=== PATIENT | male | born 1955 | race Caucasian/White ===

== ENCOUNTER 2017-01-03 13:43 | Emergency (ER) | payer BC ==
[~2017-01-03] VITALS: Ht 180.3 cm; Wt 77.1 kg
[2017-01-03] MEDS ORDERED: RISP0.5T16 PO (14:04)
[2017-01-03] MEDS ORDERED: CELE20TA PO (14:04)
[2017-01-03] MEDS ORDERED: LIDOCAINE W/EPINEPHRINE 1% 20ML VIAL SC ONE (15:00)
[2017-01-03] MEDS ORDERED: ceFAZolin SOD 1 GM in D5W MINI-BAG PLUS 50 ML IV ONE (15:00)
[2017-01-03 15:13] LABS: MEAN CORPUSCULAR HEMOGLOBIN 33.4 pg (27.0-33.0); MEAN CORPUSCULAR VOLUME 98.4 fl (80.0-96.0); WHITE BLOOD COUNT 16.5 K/mm3 (4.0-10.0)
[2017-01-03 15:42] LABS: ALBUMIN 3.7 GM/DL (3.2-5.2); ALBUMIN/GLOBULIN RATIO 1.37 (1.00-1.93); ALKALINE PHOSPHATASE 76 U/L (45-117); ALT/SGPT 18 U/L (12-78); ANION GAP 11 MEQ/L (8-16); AST/SGOT 10 U/L (15-37); BILIRUBIN,DIRECT 0.2 MG/DL (0.0-0.2); BLOOD UREA NITROGEN 24 MG/DL (7-18); CALCIUM LEVEL 8.3 MG/DL (8.5-10.1); CARBON DIOXIDE LEVEL 25 MEQ/L (21-32); CHLORIDE LEVEL 104 MEQ/L (98-107); CREATININE FOR GFR 1.11 MG/DL (0.70-1.30); GLOMERULAR FILTRATION RATE > 60.0 (>56); GLUCOSE, FASTING 178 MG/DL (70-105); POTASSIUM SERUM 4.4 MEQ/L (3.5-5.1); SODIUM LEVEL 140 MEQ/L (136-145); TOTAL PROTEIN 6.4 GM/DL (6.4-8.2)
[2017-01-03] MEDS ORDERED: NS 1,000 ML IV ONE ×2 (16:30→17:00)
[2017-01-03 18:25] LABS: METHADONE URINE NEGATIVE (NEGATIVE)
[2017-01-03] MEDS ORDERED: risperiDONE 0.5 MG TAB PO ONE (20:45)
[2017-01-04 01:09] VITALS: BP 114/66
--- NOTE | 2017-01-04 06:48 | ECGEPIP ---
Stationary ECG Study [facility] - ED Test Date: 2017-01-03 Pat Name: SONJA JASMINE Department: Room: - Gender: M [employer] Psych[employer] Nurse: : [id number] Requested By: DALLIN Meléndez Order Number: [id number] Reading MD: Karly Vines Measurements Intervals [place] Rate: 84 P: 79 CO: 146 QRS: 36 QRSD: 100 T: 50 QT: 352 QTc: 416 Interpretive Statements SINUS RHYTHM WITH MARKED SINUS ARRHYTHMIA INDETERMINATE AXIS LOW QRS VOLTAGE LIMB LEAD NONSPECIFIC ST T WAVE CHANGES NO PRIOR Electronically Signed On 01-04-2017 6:47:43 EDT by Karly Vines
== END 2017-01-04 01:13 ==
LOC: EDBD 13:43 → M ED 17:26
DX: T14.91 Suicide attempt (principal); F33.9 Major depressive disorder, recurrent, unspecified; S61.512A Laceration without foreign body of left wrist, initial encounter; S61.511A Laceration without foreign body of right wrist, initial encounter; X78.9XXA Intentional self-harm by unspecified sharp object, initial encounter; Y92.89 Other specified places as the place of occurrence of the external cause; Y93.89 Activity, other specified; Y99.8 Other external cause status; F41.9 Anxiety disorder, unspecified; I49.9 Cardiac arrhythmia, unspecified; R94.31 Abnormal electrocardiogram [ECG] [EKG]; Z79.899 Other long term (current) drug therapy
CPT/HCPCS: 12002; 80048; 80076; 80306; 81001; 84443; 85027; 87086; 93005; 96361; 96365; 99285; G0480; J0690

== ENCOUNTER 2018-05-18 10:58 | Inpatient (IN) | payer BC ==
[~2018-05-18 10:58] MED LIST: ASPIRIN 81 MG CHEW TABLET PO
[2018-05-18 11:40] LABS: BEDSIDE GLUCOSE 127 MG/DL (80-115)
[2018-05-18 11:44] LABS: BASO % 0.1 % (0.0-1.0); HEMATOCRIT 41.9 % (42.0-52.0); HEMOGLOBIN 14.8 g/dl (13.5-17.5); IMMATURE GRANULOCYTE % 0.5 % (0-3.0); LYMPH # 0.7 10^3/uL (1.5-4.5); LYMPH % 4.9 % (24.0-44.0); MEAN CORPUSCULAR HEMOGLOBIN 32.7 pg (27.0-33.0); MEAN CORPUSCULAR HGB CONC 35.3 g/dl (32.0-36.5); MEAN CORPUSCULAR VOLUME 92.5 fl (80.0-96.0); MONO # 1.2 10^3/uL (0.0-0.8); MONO % 8.2 % (0.0-5.0); NEUTROPHILS # 12.7 10^3/uL (1.8-7.7); NEUTROPHILS % 86.3 % (36.0-66.0); PLATELET COUNT, AUTOMATED 235 10^3/uL (150-450); RED BLOOD COUNT 4.53 10^6/uL (4.30-6.10); RED CELL DISTRIBUTION WIDTH 11.9 % (11.5-14.5); WHITE BLOOD COUNT 14.7 10^3/uL (4.0-10.0)
[2018-05-18 12:00] LABS: INR 0.99; PROTHROMBIN TIME 13.2 SECONDS (12.1-14.4)
[2018-05-18 12:01] LABS: PARTIAL THROMBOPLASTIN TIME 26.7 SECONDS (25.4-37.6)
[2018-05-18 12:28] LABS: ANION GAP 8 MEQ/L (8-16); BLOOD UREA NITROGEN 21 MG/DL (7-18); CALCIUM LEVEL 8.7 MG/DL (8.8-10.2); CARBON DIOXIDE LEVEL 30 MEQ/L (21-32); CHLORIDE LEVEL 101 MEQ/L (98-107); CPK CREATINE PHOSPHOKINASE 312 U/L (39-308); GLOMERULAR FILTRATION RATE > 60.0 (>49); GLUCOSE, FASTING 115 MG/DL (70-100); MB/CK RELATIVE INDEX 1.44 (< OR =4); POTASSIUM SERUM 3.9 MEQ/L (3.5-5.1); SODIUM LEVEL 139 MEQ/L (136-145); TROPONIN I 0.32 NG/ML (< 0.10)
[2018-05-18] MEDS ORDERED: NS 1,000 ML IV (12:45)
[2018-05-18] MEDS: NS 1,000 ML IV ×4 (12:55→20:20)
[2018-05-18] MEDS ORDERED: ONDANSETRON 4MG/2ML VIAL (J2405) IV (13:45)
[2018-05-18] MEDS: ASPIRIN 325 MG TAB PO (13:50)
[2018-05-18] MEDS: ACETAMINOPHEN TAB 650MG DOSE (2X325MG) PO (15:13)
[2018-05-18 15:44] LABS: ESTIMATED AVERAGE GLUCOSE 108 MG/DL (60-110); HEMOGLOBIN A1c 5.4 %
[2018-05-18 16:04] LABS: C REACTIVE PROTEIN QUANTITATIV 1.69 MG/DL (0.00-0.30); CHOLESTEROL LEVEL 166 MG/DL (<200); CHOLESTEROL RISK RATIO 3.192 (<5); HDL CHOLESTEROL 52 MG/DL (>40); LDL CHOLESTEROL 99 MG/DL (<100); NON-HDL-C 114 MG/DL; TRIGLYCERIDES LEVEL 73 MG/DL (<150)
[2018-05-18] MEDS: ASPIRIN 81 MG ENTERIC TAB PO (17:03)
[2018-05-18 18:17] LABS: ANION GAP 7 MEQ/L (8-16); BLOOD UREA NITROGEN 21 MG/DL (7-18); CALCIUM LEVEL 8.4 MG/DL (8.8-10.2); CARBON DIOXIDE LEVEL 26 MEQ/L (21-32); CHLORIDE LEVEL 109 MEQ/L (98-107); CREATININE FOR GFR 0.65 MG/DL (0.70-1.30); GLOMERULAR FILTRATION RATE > 60.0 (>49); GLUCOSE, FASTING 102 MG/DL (70-100); POTASSIUM SERUM 3.9 MEQ/L (3.5-5.1); SODIUM LEVEL 142 MEQ/L (136-145)
[2018-05-18 18:20] LABS: CPK CREATINE PHOSPHOKINASE 371 U/L (39-308); MB/CK RELATIVE INDEX 1.37 (< OR =4); TROPONIN I 0.36 NG/ML (< 0.10)
[2018-05-18] MEDS: ATORVASTATIN 20 MG TAB PO (18:35)
[2018-05-18] MEDS: CitaloPRAM (CeleXA) 20 MG TAB PO (18:35)
[2018-05-18] MEDS: HEPARIN SOD (PORCINE) 5000 UNITS/ML VIAL SC (20:19)
[2018-05-18 20:46] LABS: ERYTHROCYTE SEDIMENTATION RATE 6 mm/hr (0-20)
[2018-05-18] MEDS ORDERED: ATORVASTATIN 20 MG TAB PO (21:00)
[2018-05-19 02:35] LABS: CPK CREATINE PHOSPHOKINASE 382 U/L (39-308); MB/CK RELATIVE INDEX 0.99 (< OR =4); TROPONIN I 0.34 NG/ML (< 0.10)
[2018-05-19] MEDS: NS 1,000 ML IV ×2 (06:16→14:36)
[2018-05-19 06:55] LABS: BASO % 0.1 % (0.0-1.0); HEMATOCRIT 36.2 % (42.0-52.0); IMMATURE GRANULOCYTE % 0.5 % (0-3.0); LYMPH # 0.8 10^3/uL (1.5-4.5); LYMPH % 7.1 % (24.0-44.0); MEAN CORPUSCULAR HEMOGLOBIN 33.1 pg (27.0-33.0); MEAN CORPUSCULAR HGB CONC 35.4 g/dl (32.0-36.5); MEAN CORPUSCULAR VOLUME 93.5 fl (80.0-96.0); MONO # 1.1 10^3/uL (0.0-0.8); MONO % 9.1 % (0.0-5.0); NEUTROPHILS # 9.8 10^3/uL (1.8-7.7); NEUTROPHILS % 83.2 % (36.0-66.0); PLATELET COUNT, AUTOMATED 203 10^3/uL (150-450); RED BLOOD COUNT 3.87 10^6/uL (4.30-6.10); RED CELL DISTRIBUTION WIDTH 12.2 % (11.5-14.5); WHITE BLOOD COUNT 11.7 10^3/uL (4.0-10.0)
[2018-05-19 07:04] LABS: HEMOGLOBIN 12.8 g/dl (13.5-17.5)
[2018-05-19 07:20] LABS: ALBUMIN 3.2 GM/DL (3.2-5.2); ALBUMIN/GLOBULIN RATIO 1.03 (1.00-1.93); ALKALINE PHOSPHATASE 67 U/L (45-117); ALT/SGPT 19 U/L (12-78); ANION GAP 7 MEQ/L (8-16); AST/SGOT 21 U/L (7-37); BILIRUBIN,TOTAL 0.9 MG/DL (0.2-1.0); BLOOD UREA NITROGEN 15 MG/DL (7-18); CALCIUM LEVEL 7.8 MG/DL (8.8-10.2); CARBON DIOXIDE LEVEL 26 MEQ/L (21-32); CHLORIDE LEVEL 106 MEQ/L (98-107); CHOLESTEROL LEVEL 143 MG/DL (<200); CREATININE FOR GFR 0.78 MG/DL (0.70-1.30); GLOMERULAR FILTRATION RATE > 60.0 (>49); GLUCOSE, FASTING 108 MG/DL (70-100); HDL CHOLESTEROL 50 MG/DL (>40); LDL CHOLESTEROL 75 MG/DL (<100); NON-HDL-C 93 MG/DL; POTASSIUM SERUM 3.6 MEQ/L (3.5-5.1); SODIUM LEVEL 139 MEQ/L (136-145); TOTAL PROTEIN 6.3 GM/DL (6.4-8.2); TRIGLYCERIDES LEVEL 88 MG/DL (<150)
[2018-05-19] MEDS: CitaloPRAM (CeleXA) 20 MG TAB PO (09:27)
[2018-05-19] MEDS: ATORVASTATIN 20 MG TAB PO (09:27)
[2018-05-19] MEDS: HEPARIN SOD (PORCINE) 5000 UNITS/ML VIAL SC ×2 (09:27→21:07)
[2018-05-19] MEDS: INFLUENZA QUADRIVALENT PF VACCINE 0.5ML SYRINGE (90686) IM (09:28)
[2018-05-19] MEDS: ASPIRIN 81 MG ENTERIC TAB PO (09:28)
[2018-05-19 10:32] LABS: CPK CREATINE PHOSPHOKINASE 314 U/L (39-308); MB/CK RELATIVE INDEX 0.92 (< OR =4); TROPONIN I 0.28 NG/ML (< 0.10)
[2018-05-20] MEDS: NS 1,000 ML IV ×4 (04:18→21:32)
[2018-05-20 05:08] LABS: BASO % 0.3 % (0.0-1.0); EOS % 0.1 % (0.0-3.0); HEMATOCRIT 33.9 % (42.0-52.0); HEMOGLOBIN 11.8 g/dl (13.5-17.5); IMMATURE GRANULOCYTE % 0.4 % (0-3.0); LYMPH # 1.1 10^3/uL (1.5-4.5); LYMPH % 11.9 % (24.0-44.0); MEAN CORPUSCULAR HEMOGLOBIN 32.8 pg (27.0-33.0); MEAN CORPUSCULAR HGB CONC 34.8 g/dl (32.0-36.5); MEAN CORPUSCULAR VOLUME 94.2 fl (80.0-96.0); MONO # 1.1 10^3/uL (0.0-0.8); MONO % 12.2 % (0.0-5.0); NEUTROPHILS # 6.9 10^3/uL (1.8-7.7); NEUTROPHILS % 75.1 % (36.0-66.0); PLATELET COUNT, AUTOMATED 172 10^3/uL (150-450); WHITE BLOOD COUNT 9.2 10^3/uL (4.0-10.0)
[2018-05-20 05:41] LABS: ALBUMIN 3.1 GM/DL (3.2-5.2); ALBUMIN/GLOBULIN RATIO 1.11 (1.00-1.93); ALKALINE PHOSPHATASE 62 U/L (45-117); ALT/SGPT 18 U/L (12-78); ANION GAP 7 MEQ/L (8-16); AST/SGOT 17 U/L (7-37); BILIRUBIN,TOTAL 0.7 MG/DL (0.2-1.0); BLOOD UREA NITROGEN 15 MG/DL (7-18); CALCIUM LEVEL 8.3 MG/DL (8.8-10.2); CARBON DIOXIDE LEVEL 28 MEQ/L (21-32); CHLORIDE LEVEL 106 MEQ/L (98-107); CREATININE FOR GFR 0.63 MG/DL (0.70-1.30); GLOMERULAR FILTRATION RATE > 60.0 (>49); GLUCOSE, FASTING 104 MG/DL (70-100); POTASSIUM SERUM 3.6 MEQ/L (3.5-5.1); SODIUM LEVEL 141 MEQ/L (136-145); TOTAL PROTEIN 5.9 GM/DL (6.4-8.2)
[2018-05-20] MEDS: HEPARIN SOD (PORCINE) 5000 UNITS/ML VIAL SC ×2 (10:02→20:47)
[2018-05-20] MEDS: ATORVASTATIN 20 MG TAB PO (10:02)
[2018-05-20] MEDS: ASPIRIN 81 MG ENTERIC TAB PO (10:02)
[2018-05-20] MEDS: CitaloPRAM (CeleXA) 20 MG TAB PO (10:02)
[2018-05-21 05:27] LABS: BASO % 0.4 % (0.0-1.0); EOS % 0.5 % (0.0-3.0); HEMATOCRIT 34.3 % (42.0-52.0); HEMOGLOBIN 11.9 g/dl (13.5-17.5); IMMATURE GRANULOCYTE % 0.4 % (0-3.0); LYMPH # 1.3 10^3/uL (1.5-4.5); LYMPH % 15.8 % (24.0-44.0); MEAN CORPUSCULAR HEMOGLOBIN 32.7 pg (27.0-33.0); MEAN CORPUSCULAR HGB CONC 34.7 g/dl (32.0-36.5); MEAN CORPUSCULAR VOLUME 94.2 fl (80.0-96.0); MONO % 11.9 % (0.0-5.0); NEUTROPHILS # 5.8 10^3/uL (1.8-7.7); PLATELET COUNT, AUTOMATED 180 10^3/uL (150-450); RED BLOOD COUNT 3.64 10^6/uL (4.30-6.10); WHITE BLOOD COUNT 8.2 10^3/uL (4.0-10.0)
[2018-05-21 05:55] LABS: ALKALINE PHOSPHATASE 68 U/L (45-117); ALT/SGPT 24 U/L (12-78); ANION GAP 6 MEQ/L (8-16); AST/SGOT 21 U/L (7-37); BILIRUBIN,TOTAL 0.7 MG/DL (0.2-1.0); BLOOD UREA NITROGEN 14 MG/DL (7-18); CALCIUM LEVEL 8.3 MG/DL (8.8-10.2); CARBON DIOXIDE LEVEL 28 MEQ/L (21-32); CHLORIDE LEVEL 107 MEQ/L (98-107); CREATININE FOR GFR 0.65 MG/DL (0.70-1.30); GLOMERULAR FILTRATION RATE > 60.0 (>49); GLUCOSE, FASTING 95 MG/DL (70-100); POTASSIUM SERUM 3.7 MEQ/L (3.5-5.1); SODIUM LEVEL 141 MEQ/L (136-145)
[2018-05-21] MEDS: NS 1,000 ML IV (06:22)
[2018-05-21] MEDS: ASPIRIN 81 MG ENTERIC TAB PO (09:14)
[2018-05-21] MEDS: ATORVASTATIN 20 MG TAB PO (09:14)
[2018-05-21] MEDS: CitaloPRAM (CeleXA) 20 MG TAB PO (09:14)
[2018-05-21] MEDS: HEPARIN SOD (PORCINE) 5000 UNITS/ML VIAL SC ×2 (10:06→20:07)
[2018-05-21] MEDS: LIDOCAINE VISCOUS 2% SOLN 15ML UDC As Ordered (11:03)
[2018-05-21] MEDS: CETACAINE SPRAY 5GM As Ordered (11:08)
[2018-05-21] MEDS ORDERED: LIDOCAINE 2% INJ 100 MG/5 ML SDV (FOR ANES.) As Ordered (11:25)
[2018-05-21] MEDS ORDERED: MIDAZOLAM INJ 2 MG/2 ML VIAL (J2250) As Ordered (11:25)
[2018-05-21] MEDS ORDERED: PROPOFOL 200 MG/20 ML VIAL As Ordered (11:25)
[2018-05-22 05:34] LABS: BASO % 0.2 % (0.0-1.0); EOS # 0.1 10^3/uL (0.0-0.50); EOS % 0.6 % (0.0-3.0); HEMATOCRIT 36.3 % (42.0-52.0); IMMATURE GRANULOCYTE % 0.4 % (0-3.0); LYMPH % 10.7 % (24.0-44.0); MEAN CORPUSCULAR HEMOGLOBIN 32.7 pg (27.0-33.0); MEAN CORPUSCULAR HGB CONC 35.8 g/dl (32.0-36.5); MEAN CORPUSCULAR VOLUME 91.4 fl (80.0-96.0); MONO # 1.1 10^3/uL (0.0-0.8); MONO % 11.6 % (0.0-5.0); NEUTROPHILS # 7.4 10^3/uL (1.8-7.7); NEUTROPHILS % 76.5 % (36.0-66.0); PLATELET COUNT, AUTOMATED 217 10^3/uL (150-450); RED BLOOD COUNT 3.97 10^6/uL (4.30-6.10); RED CELL DISTRIBUTION WIDTH 11.9 % (11.5-14.5); WHITE BLOOD COUNT 9.7 10^3/uL (4.0-10.0)
[2018-05-22 06:01] LABS: ALBUMIN 3.1 GM/DL (3.2-5.2); ALBUMIN/GLOBULIN RATIO 0.82 (1.00-1.93); ALKALINE PHOSPHATASE 81 U/L (45-117); ALT/SGPT 35 U/L (12-78); ANION GAP 7 MEQ/L (8-16); AST/SGOT 32 U/L (7-37); BILIRUBIN,TOTAL 0.7 MG/DL (0.2-1.0); BLOOD UREA NITROGEN 18 MG/DL (7-18); CALCIUM LEVEL 8.1 MG/DL (8.8-10.2); CARBON DIOXIDE LEVEL 27 MEQ/L (21-32); CHLORIDE LEVEL 104 MEQ/L (98-107); CPK CREATINE PHOSPHOKINASE 173 U/L (39-308); GLOMERULAR FILTRATION RATE > 60.0 (>49); GLUCOSE, FASTING 109 MG/DL (70-100); POTASSIUM SERUM 4.1 MEQ/L (3.5-5.1); SODIUM LEVEL 138 MEQ/L (136-145); TOTAL PROTEIN 6.9 GM/DL (6.4-8.2)
[2018-05-22] MEDS: ATORVASTATIN 20 MG TAB PO (09:24)
[2018-05-22] MEDS: ASPIRIN 81 MG ENTERIC TAB PO (09:26)
[2018-05-22] MEDS: CitaloPRAM (CeleXA) 20 MG TAB PO (09:27)
[2018-05-22] MEDS: HEPARIN SOD (PORCINE) 5000 UNITS/ML VIAL SC ×2 (09:30→20:07)
[2018-05-22] MEDS: SENNA 8.6 MG TAB (SENOKOT) PO (17:32)
[2018-05-22] MEDS: ACETAMINOPHEN TAB 650MG DOSE (2X325MG) PO (20:16)
[2018-05-23 05:53] LABS: BASO % 0.3 % (0.0-1.0); EOS # 0.1 10^3/uL (0.0-0.50); EOS % 0.8 % (0.0-3.0); HEMATOCRIT 36.2 % (42.0-52.0); HEMOGLOBIN 12.9 g/dl (13.5-17.5); IMMATURE GRANULOCYTE % 0.5 % (0-3.0); LYMPH # 1.1 10^3/uL (1.5-4.5); LYMPH % 11.3 % (24.0-44.0); MEAN CORPUSCULAR HEMOGLOBIN 32.9 pg (27.0-33.0); MEAN CORPUSCULAR HGB CONC 35.6 g/dl (32.0-36.5); MEAN CORPUSCULAR VOLUME 92.3 fl (80.0-96.0); MONO # 1.3 10^3/uL (0.0-0.8); MONO % 12.6 % (0.0-5.0); NEUTROPHILS # 7.5 10^3/uL (1.8-7.7); NEUTROPHILS % 74.5 % (36.0-66.0); PLATELET COUNT, AUTOMATED 194 10^3/uL (150-450); RED BLOOD COUNT 3.92 10^6/uL (4.30-6.10); WHITE BLOOD COUNT 10.1 10^3/uL (4.0-10.0)
[2018-05-23 06:22] LABS: BLOOD UREA NITROGEN 26 MG/DL (7-18); CREATININE FOR GFR 0.76 MG/DL (0.70-1.30); GLOMERULAR FILTRATION RATE > 60.0 (>49); GLUCOSE, FASTING 115 MG/DL (70-100)
[2018-05-23 06:23] LABS: ALBUMIN 3.5 GM/DL (3.2-5.2); ALBUMIN/GLOBULIN RATIO 1.09 (1.00-1.93); ALKALINE PHOSPHATASE 91 U/L (45-117); ALT/SGPT 43 U/L (12-78); ANION GAP 8 MEQ/L (8-16); AST/SGOT 33 U/L (7-37); BILIRUBIN,TOTAL 0.7 MG/DL (0.2-1.0); CALCIUM LEVEL 8.6 MG/DL (8.8-10.2); CARBON DIOXIDE LEVEL 29 MEQ/L (21-32); CHLORIDE LEVEL 104 MEQ/L (98-107); POTASSIUM SERUM 4.4 MEQ/L (3.5-5.1); SODIUM LEVEL 141 MEQ/L (136-145); TOTAL PROTEIN 6.7 GM/DL (6.4-8.2)
[2018-05-23] MEDS: ASPIRIN 81 MG ENTERIC TAB PO (08:45)
[2018-05-23] MEDS: ATORVASTATIN 20 MG TAB PO (08:45)
[2018-05-23] MEDS: CitaloPRAM (CeleXA) 20 MG TAB PO (08:45)
[2018-05-23] MEDS: HEPARIN SOD (PORCINE) 5000 UNITS/ML VIAL SC ×2 (08:45→20:03)
[2018-05-23 10:49] LABS: DRVV SCREEN 38.4 SEC
[2018-05-23 10:53] LABS: PTT LUPUS TYPE ANTICOAG SCREEN 0.9 (0-1.2)
[2018-05-24 06:20] LABS: BASO % 0.3 % (0.0-1.0); EOS # 0.1 10^3/uL (0.0-0.50); EOS % 0.4 % (0.0-3.0); HEMATOCRIT 38.2 % (42.0-52.0); HEMOGLOBIN 13.2 g/dl (13.5-17.5); IMMATURE GRANULOCYTE % 0.7 % (0-3.0); LYMPH # 1.1 10^3/uL (1.5-4.5); LYMPH % 8.3 % (24.0-44.0); MEAN CORPUSCULAR HEMOGLOBIN 32.4 pg (27.0-33.0); MEAN CORPUSCULAR HGB CONC 34.6 g/dl (32.0-36.5); MEAN CORPUSCULAR VOLUME 93.9 fl (80.0-96.0); MONO # 1.7 10^3/uL (0.0-0.8); MONO % 12.3 % (0.0-5.0); NEUTROPHILS # 10.6 10^3/uL (1.8-7.7); PLATELET COUNT, AUTOMATED 228 10^3/uL (150-450); RED BLOOD COUNT 4.07 10^6/uL (4.30-6.10); RED CELL DISTRIBUTION WIDTH 11.9 % (11.5-14.5); WHITE BLOOD COUNT 13.6 10^3/uL (4.0-10.0)
[2018-05-24 06:43] LABS: ALBUMIN 3.3 GM/DL (3.2-5.2); ALBUMIN/GLOBULIN RATIO 0.85 (1.00-1.93); ALKALINE PHOSPHATASE 89 U/L (45-117); ALT/SGPT 44 U/L (12-78); ANION GAP 7 MEQ/L (8-16); AST/SGOT 26 U/L (7-37); BILIRUBIN,TOTAL 0.7 MG/DL (0.2-1.0); BLOOD UREA NITROGEN 28 MG/DL (7-18); CALCIUM LEVEL 8.9 MG/DL (8.8-10.2); CARBON DIOXIDE LEVEL 27 MEQ/L (21-32); CHLORIDE LEVEL 103 MEQ/L (98-107); CREATININE FOR GFR 0.71 MG/DL (0.70-1.30); GLOMERULAR FILTRATION RATE > 60.0 (>49); GLUCOSE, FASTING 112 MG/DL (70-100); POTASSIUM SERUM 4.2 MEQ/L (3.5-5.1); SODIUM LEVEL 137 MEQ/L (136-145); TOTAL PROTEIN 7.2 GM/DL (6.4-8.2)
[2018-05-24] MEDS: HEPARIN SOD (PORCINE) 5000 UNITS/ML VIAL SC (09:31)
[2018-05-24] MEDS: CitaloPRAM (CeleXA) 20 MG TAB PO (09:31)
[2018-05-24] MEDS: ASPIRIN 81 MG ENTERIC TAB PO (09:31)
[2018-05-24] MEDS: ATORVASTATIN 20 MG TAB PO (09:31)
[2018-05-24] MEDS ORDERED: SLF 3 ML SYR IV (11:45)
[2018-05-24 11:51] LABS: KETONE, URINE AUTO RFX NEGATIVE (NEGATIVE); LEUKOCYTE ESTERASE UR AUTO RFX NEGATIVE (NEGATIVE); MUCUS, URINE RFX SMALL (NEGATIVE); NITRITE, URINE AUTO RFX NEGATIVE (NEGATIVE); RBC, URINE AUTO RFX 1 /HPF (0-3); SPECIFIC GRAVITY UR AUTO RFX 1.024 (1.002-1.035); SQUAM EPITHELIAL CELL UR AURFX 0 /HPF (0-6); WBC, URINE AUTO RFX 0 /HPF (0-3)
[2018-05-24] MEDS: SLF 3 ML SYR IV (14:00)
[2018-05-25 00:08] LABS: ANCA-ATYPICAL <1:20 titer (Neg:<1:20); ANTI THROMBIN 3 ANTIGEN IMMUNO 99 % (72-124); ANTI THROMBIN 3 FUNCT ACTIVITY 109 % (75-135); ANTINUCLEAR ANTIBODIES DIRECT Negative (Negative); CARDIOLIPIN IGA ANTIBODY <9 APL U/mL (0-11); CARDIOLIPIN IGG ANTIBODY <9 GPL U/mL (0-14); CARDIOLIPIN IGM ANTIBODY <9 MPL U/mL (0-12); CYTOPLASMIC NEUTROP AB ANCA-C <1:20 titer (Neg:<1:20); PERINUCLEAR AB ANCA-P <1:20 titer (Neg:<1:20); PROTEIN C ANTIGEN 127 % (60-150); PROTEIN S ANTIGEN FREE 108 % (57-157); PROTEIN S ANTIGEN TOTAL 84 % (60-150); SJOGREN'S ANTI SS-A <0.2 AI (0.0-0.9); SJOGREN'S ANTI SS-B <0.2 AI (0.0-0.9)
== END 2018-05-24 17:06 | DRG 45 ==
LOC: M ED 10:58 → M ED INP 14:50 → M PCU 17:02
DX: I63.9 Cerebral infarction, unspecified (principal); M62.82 Rhabdomyolysis; F41.9 Anxiety disorder, unspecified; F32.9 Major depressive disorder, single episode, unspecified; D72.829 Elevated white blood cell count, unspecified; M47.892 Other spondylosis, cervical region; Z79.899 Other long term (current) drug therapy

== ENCOUNTER 2018-05-24 17:15 | Inpatient (IN) | payer BC ==
[2018-05-24] MEDS ORDERED: SENOKOT S TAB PO (17:45)
[2018-05-24] MEDS ORDERED: ACETAMINOPHEN TAB 650MG DOSE (2X325MG) PO (17:45)
[2018-05-24] MEDS: risperiDONE 1 MG TAB PO (21:29)
[2018-05-25 06:33] LABS: APPEARANCE, URINE HAZY (CLEAR); BACTERIA, URINE AUTO NEGATIVE (NEGATIVE); BILIRUBIN, URINE AUTO NEGATIVE (NEGATIVE); BLOOD, URINE BLOOD NEGATIVE (NEGATIVE); COLOR, URINE YELLOW (YELLOW); GLUCOSE, URINE (UA) AUTO NEGATIVE (NEGATIVE); KETONE, URINE AUTO NEGATIVE (NEGATIVE); LEUKOCYTE ESTERASE, URINE AUTO NEGATIVE (NEGATIVE); MUCUS, URINE SMALL (NEGATIVE); NITRITE, URINE AUTO NEGATIVE (NEGATIVE); PROTEIN, URINE AUTO NEGATIVE (NEGATIVE); RBC, URINE AUTO 3 /HPF (0-3); SPECIFIC GRAVITY URINE AUTO 1.025 (1.002-1.035); SQUAMOUS EPITHELIAL CELL UR AU 0 /HPF (0-6); WBC, URINE AUTO 1 /HPF (0-3)
[2018-05-25 07:22] LABS: BASO # 0.1 10^3/uL (0.0-0.2); BASO % 0.4 % (0.0-1.0); EOS % 0.3 % (0.0-3.0); HEMATOCRIT 34.6 % (42.0-52.0); LYMPH % 8.2 % (24.0-44.0); MEAN CORPUSCULAR HEMOGLOBIN 32.9 pg (27.0-33.0); MEAN CORPUSCULAR HGB CONC 34.7 g/dl (32.0-36.5); MEAN CORPUSCULAR VOLUME 94.8 fl (80.0-96.0); MONO # 1.6 10^3/uL (0.0-0.8); MONO % 13.2 % (0.0-5.0); NEUTROPHILS # 9.6 10^3/uL (1.8-7.7); NEUTROPHILS % 76.9 % (36.0-66.0); PLATELET COUNT, AUTOMATED 213 10^3/uL (150-450); RED BLOOD COUNT 3.65 10^6/uL (4.30-6.10); RED CELL DISTRIBUTION WIDTH 11.9 % (11.5-14.5); WHITE BLOOD COUNT 12.4 10^3/uL (4.0-10.0)
[2018-05-25 07:44] LABS: ALBUMIN/GLOBULIN RATIO 0.79 (1.00-1.93); ALKALINE PHOSPHATASE 86 U/L (45-117); ALT/SGPT 45 U/L (12-78); ANION GAP 7 MEQ/L (8-16); AST/SGOT 24 U/L (7-37); BILIRUBIN,TOTAL 0.6 MG/DL (0.2-1.0); BLOOD UREA NITROGEN 29 MG/DL (7-18); CALCIUM LEVEL 8.6 MG/DL (8.8-10.2); CARBON DIOXIDE LEVEL 29 MEQ/L (21-32); CHLORIDE LEVEL 102 MEQ/L (98-107); CREATININE FOR GFR 0.72 MG/DL (0.70-1.30); GLOMERULAR FILTRATION RATE > 60.0 (>49); GLUCOSE, FASTING 108 MG/DL (70-100); POTASSIUM SERUM 3.9 MEQ/L (3.5-5.1); SODIUM LEVEL 138 MEQ/L (136-145); TOTAL PROTEIN 6.8 GM/DL (6.4-8.2)
[2018-05-25] MEDS: ASPIRIN 81 MG ENTERIC TAB PO (08:45)
[2018-05-25] MEDS: ENOXAPARIN 40 MG/0.4 ML SYRINGE (J1650) SC (08:45)
[2018-05-25] MEDS: CitaloPRAM (CeleXA) 20 MG TAB PO (08:45)
[2018-05-25] MEDS: PANTOPRAZOLE 40MG TAB (PROTONIX) PO (08:45)
[2018-05-25] MEDS: ATORVASTATIN 20 MG TAB PO (08:46)
[2018-05-25 13:49] LABS: THYROID STIMULATING HORMONE 0.793 uIU/ML (0.358-3.740)
[2018-05-25 14:10] LABS: MAGNESIUM LEVEL 2.3 MG/DL (1.8-2.4)
[2018-05-25] MEDS: risperiDONE 1 MG TAB PO (20:54)
[2018-05-26] MEDS: VITAMIN D 1,000 INTERNATIONAL UNITS TABLET PO (09:28)
[2018-05-26] MEDS: ATORVASTATIN 20 MG TAB PO (09:28)
[2018-05-26] MEDS: ASPIRIN 81 MG ENTERIC TAB PO (09:28)
[2018-05-26] MEDS: CitaloPRAM (CeleXA) 20 MG TAB PO (09:28)
[2018-05-26] MEDS: PANTOPRAZOLE 40MG TAB (PROTONIX) PO (09:28)
[2018-05-26] MEDS: APIXABAN 5 MG TAB (ELIQUIS) PO (09:36)
[2018-05-26] MEDS ORDERED: ISOVUE-370 76% 100ML VIAL (Q9967) As Ordered (09:49)
[2018-05-26] MEDS ORDERED: LIDOCAINE 2% MDV 20 ML VIAL As Ordered (13:13)
[2018-05-26] MEDS ORDERED: ISOVUE-300 61% 50ML VIAL (Q9967) As Ordered (13:13)
[2018-05-30 00:07] LABS: Methylmalonic Acid 348 nmol/L (0-378)
[2018-06-02] MEDS ORDERED: APIXABAN 5 MG TAB (ELIQUIS) PO (09:00)
== END 2018-05-26 14:08 | disposition short-term general hospital (02) | DRG 58 ==
LOC: M PM&R 17:15
DX: I69.351 Hemiplegia and hemiparesis following cerebral infarction affecting right dominant side (principal); F32.9 Major depressive disorder, single episode, unspecified; F41.9 Anxiety disorder, unspecified; Z86.718 Personal history of other venous thrombosis and embolism; I69.322 Dysarthria following cerebral infarction; Z66 Do not resuscitate; Z79.82 Long term (current) use of aspirin; Z79.899 Other long term (current) drug therapy

== ENCOUNTER 2018-05-26 15:15 | Inpatient (IN) | payer BC ==
[2018-05-26] MEDS: risperiDONE 1 MG TAB PO (20:33)
[2018-05-26] MEDS: APIXABAN 5 MG TAB (ELIQUIS) PO (20:33)
[2018-05-27 05:23] LABS: HEMATOCRIT 33.5 % (42.0-52.0); HEMOGLOBIN 11.5 g/dl (13.5-17.5); MEAN CORPUSCULAR HEMOGLOBIN 32.1 pg (27.0-33.0); MEAN CORPUSCULAR HGB CONC 34.3 g/dl (32.0-36.5); MEAN CORPUSCULAR VOLUME 93.6 fl (80.0-96.0); PLATELET COUNT, AUTOMATED 281 10^3/uL (150-450); RED BLOOD COUNT 3.58 10^6/uL (4.30-6.10); RED CELL DISTRIBUTION WIDTH 11.9 % (11.5-14.5); WHITE BLOOD COUNT 11.5 10^3/uL (4.0-10.0)
[2018-05-27 05:47] LABS: ANION GAP 6 MEQ/L (8-16); BLOOD UREA NITROGEN 26 MG/DL (7-18); CALCIUM LEVEL 8.4 MG/DL (8.8-10.2); CARBON DIOXIDE LEVEL 29 MEQ/L (21-32); CHLORIDE LEVEL 101 MEQ/L (98-107); CREATININE FOR GFR 0.72 MG/DL (0.70-1.30); GLOMERULAR FILTRATION RATE > 60.0 (>49); GLUCOSE, FASTING 111 MG/DL (70-100); POTASSIUM SERUM 4.1 MEQ/L (3.5-5.1); SODIUM LEVEL 136 MEQ/L (136-145)
[2018-05-27] MEDS: ASPIRIN 81 MG ENTERIC TAB PO (08:50)
[2018-05-27] MEDS: APIXABAN 5 MG TAB (ELIQUIS) PO ×2 (08:50→21:10)
[2018-05-27] MEDS: ATORVASTATIN 20 MG TAB PO (08:50)
[2018-05-27] MEDS: CitaloPRAM (CeleXA) 20 MG TAB PO (08:50)
[2018-05-27] MEDS: VITAMIN D 1,000 INTERNATIONAL UNITS TABLET PO (08:50)
[2018-05-27 13:20] LABS: ERYTHROCYTE SEDIMENTATION RATE 46 mm/hr (0-20)
[2018-05-27] MEDS: risperiDONE 1 MG TAB PO (21:09)
[2018-05-28 05:37] LABS: HEMATOCRIT 33.6 % (42.0-52.0); HEMOGLOBIN 11.3 g/dl (13.5-17.5); MEAN CORPUSCULAR HEMOGLOBIN 32.3 pg (27.0-33.0); MEAN CORPUSCULAR HGB CONC 33.6 g/dl (32.0-36.5); PLATELET COUNT, AUTOMATED 300 10^3/uL (150-450); RED CELL DISTRIBUTION WIDTH 11.9 % (11.5-14.5); WHITE BLOOD COUNT 11.8 10^3/uL (4.0-10.0)
[2018-05-28 06:02] LABS: ANION GAP 6 MEQ/L (8-16); BLOOD UREA NITROGEN 27 MG/DL (7-18); CALCIUM LEVEL 8.6 MG/DL (8.8-10.2); CARBON DIOXIDE LEVEL 31 MEQ/L (21-32); CHLORIDE LEVEL 100 MEQ/L (98-107); CREATININE FOR GFR 0.81 MG/DL (0.70-1.30); GLOMERULAR FILTRATION RATE > 60.0 (>49); GLUCOSE, FASTING 114 MG/DL (70-100); POTASSIUM SERUM 4.1 MEQ/L (3.5-5.1); SODIUM LEVEL 137 MEQ/L (136-145)
[2018-05-28] MEDS: ATORVASTATIN 20 MG TAB PO (09:20)
[2018-05-28] MEDS: ASPIRIN 81 MG ENTERIC TAB PO (09:20)
[2018-05-28] MEDS: CitaloPRAM (CeleXA) 20 MG TAB PO (09:21)
[2018-05-28] MEDS: VITAMIN D 1,000 INTERNATIONAL UNITS TABLET PO (09:21)
[2018-05-28] MEDS: APIXABAN 5 MG TAB (ELIQUIS) PO ×2 (09:21→20:07)
[2018-05-28] MEDS: risperiDONE 1 MG TAB PO (20:07)
[2018-05-29 05:23] LABS: HEMATOCRIT 31.4 % (42.0-52.0); HEMOGLOBIN 10.7 g/dl (13.5-17.5); MEAN CORPUSCULAR HEMOGLOBIN 32.5 pg (27.0-33.0); MEAN CORPUSCULAR HGB CONC 34.1 g/dl (32.0-36.5); MEAN CORPUSCULAR VOLUME 95.4 fl (80.0-96.0); PLATELET COUNT, AUTOMATED 333 10^3/uL (150-450); RED BLOOD COUNT 3.29 10^6/uL (4.30-6.10); RED CELL DISTRIBUTION WIDTH 11.9 % (11.5-14.5); WHITE BLOOD COUNT 10.3 10^3/uL (4.0-10.0)
[2018-05-29 05:39] LABS: ANION GAP 6 MEQ/L (8-16); BLOOD UREA NITROGEN 25 MG/DL (7-18); CALCIUM LEVEL 8.3 MG/DL (8.8-10.2); CARBON DIOXIDE LEVEL 30 MEQ/L (21-32); CHLORIDE LEVEL 103 MEQ/L (98-107); CREATININE FOR GFR 0.74 MG/DL (0.70-1.30); GLOMERULAR FILTRATION RATE > 60.0 (>49); GLUCOSE, FASTING 114 MG/DL (70-100); SODIUM LEVEL 139 MEQ/L (136-145)
[2018-05-29] MEDS: ATORVASTATIN 20 MG TAB PO (08:23)
[2018-05-29] MEDS: CitaloPRAM (CeleXA) 20 MG TAB PO (08:24)
[2018-05-29] MEDS: APIXABAN 5 MG TAB (ELIQUIS) PO (08:24)
[2018-05-29] MEDS: VITAMIN D 1,000 INTERNATIONAL UNITS TABLET PO (08:28)
[2018-05-29] MEDS: ASPIRIN 81 MG ENTERIC TAB PO (08:29)
[2018-05-31 08:48] LABS: BETA-2 GLYCOPROTEIN I ABY IGA <9 (0-25); BETA-2 GLYCOPROTEIN I ABY IGG <9 (0-20); BETA-2 GLYCOPROTEIN I ABY IGM <9 (0-32)
== END 2018-05-29 14:57 | DRG 197 ==
LOC: M PCU 15:15
PROC: 06L03DZ Occlusion of Inferior Vena Cava with Intraluminal Device, Percutaneous Approach (ICD-10-PCS; principal; 2018-05-26)
DX: I82.413 Acute embolism and thrombosis of femoral vein, bilateral (principal); I63.9 Cerebral infarction, unspecified; I26.99 Other pulmonary embolism without acute cor pulmonale; Z79.899 Other long term (current) drug therapy; Z79.82 Long term (current) use of aspirin; F41.9 Anxiety disorder, unspecified; F32.9 Major depressive disorder, single episode, unspecified; Z86.718 Personal history of other venous thrombosis and embolism

== ENCOUNTER 2018-05-29 15:00 | Inpatient (IN) | payer BC ==
[2018-05-29] MEDS ORDERED: ACETAMINOPHEN TAB 650MG DOSE (2X325MG) PO (17:45)
[2018-05-29] MEDS: PANTOPRAZOLE 40MG TAB (PROTONIX) PO (20:20)
[2018-05-29] MEDS: APIXABAN 5 MG TAB (ELIQUIS) PO (20:20)
[2018-05-29] MEDS: risperiDONE 1 MG TAB PO (20:20)
[2018-05-30 06:48] LABS: BASO # 0.1 10^3/uL (0.0-0.2); BASO % 0.5 % (0.0-1.0); EOS # 0.1 10^3/uL (0.0-0.50); EOS % 0.9 % (0.0-3.0); HEMATOCRIT 32.8 % (42.0-52.0); HEMOGLOBIN 10.9 g/dl (13.5-17.5); IMMATURE GRANULOCYTE % 1.3 % (0-3.0); LYMPH # 1.1 10^3/uL (1.5-4.5); LYMPH % 9.8 % (24.0-44.0); MEAN CORPUSCULAR HEMOGLOBIN 32.3 pg (27.0-33.0); MEAN CORPUSCULAR HGB CONC 33.2 g/dl (32.0-36.5); MEAN CORPUSCULAR VOLUME 97.3 fl (80.0-96.0); MONO # 0.9 10^3/uL (0.0-0.8); MONO % 8.2 % (0.0-5.0); NEUTROPHILS # 8.5 10^3/uL (1.8-7.7); NEUTROPHILS % 79.3 % (36.0-66.0); PLATELET COUNT, AUTOMATED 388 10^3/uL (150-450); RED BLOOD COUNT 3.37 10^6/uL (4.30-6.10); RED CELL DISTRIBUTION WIDTH 11.9 % (11.5-14.5); WHITE BLOOD COUNT 10.7 10^3/uL (4.0-10.0)
[2018-05-30 07:13] LABS: ALBUMIN 2.5 GM/DL (3.2-5.2); ALBUMIN/GLOBULIN RATIO 0.64 (1.00-1.93); ALKALINE PHOSPHATASE 197 U/L (45-117); ALT/SGPT 299 U/L (12-78); ANION GAP 5 MEQ/L (8-16); AST/SGOT 192 U/L (7-37); BILIRUBIN,TOTAL 0.5 MG/DL (0.2-1.0); BLOOD UREA NITROGEN 21 MG/DL (7-18); CALCIUM LEVEL 8.8 MG/DL (8.8-10.2); CARBON DIOXIDE LEVEL 31 MEQ/L (21-32); CHLORIDE LEVEL 103 MEQ/L (98-107); CREATININE FOR GFR 0.75 MG/DL (0.70-1.30); GLOMERULAR FILTRATION RATE > 60.0 (>49); GLUCOSE, FASTING 103 MG/DL (70-100); POTASSIUM SERUM 4.4 MEQ/L (3.5-5.1); SODIUM LEVEL 139 MEQ/L (136-145); TOTAL PROTEIN 6.4 GM/DL (6.4-8.2)
[2018-05-30] MEDS: PANTOPRAZOLE 40MG TAB (PROTONIX) PO ×2 (08:17→21:14)
[2018-05-30] MEDS: VITAMIN D 1,000 INTERNATIONAL UNITS TABLET PO (08:18)
[2018-05-30] MEDS: CitaloPRAM (CeleXA) 20 MG TAB PO (08:18)
[2018-05-30] MEDS: APIXABAN 5 MG TAB (ELIQUIS) PO ×2 (08:18→21:14)
[2018-05-30] MEDS: ASPIRIN 81 MG ENTERIC TAB PO (08:18)
[2018-05-30] MEDS: ATORVASTATIN 20 MG TAB PO (08:18)
[2018-05-30] MEDS: ACETAMINOPHEN 325 MG TAB PO (10:27)
[2018-05-30 11:31] LABS: TROPONIN I 0.04 NG/ML (< 0.10)
[2018-05-30 11:31] LABS: CK-MB VALUE MASS < 1.0 NG/ML (<3.6)
[2018-05-30] MEDS: risperiDONE 1 MG TAB PO (21:14)
[2018-05-30] MEDS: ACETAMINOPHEN TAB 650MG DOSE (2X325MG) PO ×2 (21:15→21:45)
[2018-05-31] MEDS: VITAMIN D 1,000 INTERNATIONAL UNITS TABLET PO (09:11)
[2018-05-31] MEDS: ATORVASTATIN 20 MG TAB PO (09:11)
[2018-05-31] MEDS: CitaloPRAM (CeleXA) 20 MG TAB PO (09:11)
[2018-05-31] MEDS: APIXABAN 5 MG TAB (ELIQUIS) PO ×2 (09:12→21:58)
[2018-05-31] MEDS: ASPIRIN 81 MG ENTERIC TAB PO (09:12)
[2018-05-31] MEDS: PANTOPRAZOLE 40MG TAB (PROTONIX) PO ×2 (09:12→21:57)
[2018-05-31] MEDS: risperiDONE 1 MG TAB PO (21:57)
[2018-06-01] MEDS: ASPIRIN 81 MG ENTERIC TAB PO (08:35)
[2018-06-01] MEDS: ATORVASTATIN 20 MG TAB PO (08:36)
[2018-06-01] MEDS: CitaloPRAM (CeleXA) 20 MG TAB PO (08:36)
[2018-06-01] MEDS: VITAMIN D 1,000 INTERNATIONAL UNITS TABLET PO (08:36)
[2018-06-01] MEDS: APIXABAN 5 MG TAB (ELIQUIS) PO ×2 (08:36→20:18)
[2018-06-01] MEDS: PANTOPRAZOLE 40MG TAB (PROTONIX) PO ×2 (08:36→20:18)
[2018-06-01] MEDS ORDERED: SENNA 8.6 MG TAB (SENOKOT) PO (13:00)
[2018-06-01] MEDS: DOCUSATE SODIUM 100 MG CAP PO ×2 (14:55→20:18)
[2018-06-01] MEDS: risperiDONE 1 MG TAB PO (20:18)
[2018-06-02] MEDS: VITAMIN D 1,000 INTERNATIONAL UNITS TABLET PO (08:15)
[2018-06-02] MEDS: PANTOPRAZOLE 40MG TAB (PROTONIX) PO ×2 (08:15→21:13)
[2018-06-02] MEDS: ATORVASTATIN 20 MG TAB PO (08:15)
[2018-06-02] MEDS: ASPIRIN 81 MG ENTERIC TAB PO (08:15)
[2018-06-02] MEDS: CitaloPRAM (CeleXA) 20 MG TAB PO (08:15)
[2018-06-02] MEDS: DOCUSATE SODIUM 100 MG CAP PO ×3 (08:15→21:13)
[2018-06-02] MEDS: APIXABAN 5 MG TAB (ELIQUIS) PO ×2 (09:32→21:13)
[2018-06-02] MEDS: risperiDONE 1 MG TAB PO (21:13)
[2018-06-03] MEDS: ATORVASTATIN 20 MG TAB PO (09:35)
[2018-06-03] MEDS: VITAMIN D 1,000 INTERNATIONAL UNITS TABLET PO (09:35)
[2018-06-03] MEDS: DOCUSATE SODIUM 100 MG CAP PO ×3 (09:36→20:02)
[2018-06-03] MEDS: ASPIRIN 81 MG ENTERIC TAB PO (09:36)
[2018-06-03] MEDS: PANTOPRAZOLE 40MG TAB (PROTONIX) PO ×2 (09:36→20:02)
[2018-06-03] MEDS: APIXABAN 5 MG TAB (ELIQUIS) PO ×2 (09:36→20:02)
[2018-06-03] MEDS: CitaloPRAM (CeleXA) 20 MG TAB PO (09:36)
[2018-06-03] MEDS ORDERED: MOM 30ML SUSPENSION UDC PO (10:30)
[2018-06-03] MEDS: risperiDONE 1 MG TAB PO (20:02)
[2018-06-04] MEDS: DOCUSATE SODIUM 100 MG CAP PO ×3 (09:32→20:17)
[2018-06-04] MEDS: PANTOPRAZOLE 40MG TAB (PROTONIX) PO ×2 (09:32→20:17)
[2018-06-04] MEDS: APIXABAN 5 MG TAB (ELIQUIS) PO ×2 (09:32→20:17)
[2018-06-04] MEDS: VITAMIN D 1,000 INTERNATIONAL UNITS TABLET PO (09:32)
[2018-06-04] MEDS: ASPIRIN 81 MG ENTERIC TAB PO (09:32)
[2018-06-04] MEDS: ATORVASTATIN 20 MG TAB PO (09:32)
[2018-06-04] MEDS: CitaloPRAM (CeleXA) 20 MG TAB PO (09:32)
[2018-06-04] MEDS: risperiDONE 1 MG TAB PO (20:17)
[2018-06-05] MEDS: PANTOPRAZOLE 40MG TAB (PROTONIX) PO ×2 (08:59→21:34)
[2018-06-05] MEDS: DOCUSATE SODIUM 100 MG CAP PO ×3 (08:59→21:34)
[2018-06-05] MEDS: ATORVASTATIN 20 MG TAB PO (08:59)
[2018-06-05] MEDS: VITAMIN D 1,000 INTERNATIONAL UNITS TABLET PO (08:59)
[2018-06-05] MEDS: CitaloPRAM (CeleXA) 20 MG TAB PO (08:59)
[2018-06-05] MEDS: APIXABAN 5 MG TAB (ELIQUIS) PO ×2 (08:59→21:34)
[2018-06-05] MEDS: ASPIRIN 81 MG ENTERIC TAB PO (08:59)
[2018-06-05] MEDS: risperiDONE 1 MG TAB PO (21:34)
[2018-06-05] MEDS: CYANOCOBALAMIN 500 MCG TAB PO (21:34)
[2018-06-06] MEDS: ATORVASTATIN 20 MG TAB PO (09:56)
[2018-06-06] MEDS: PANTOPRAZOLE 40MG TAB (PROTONIX) PO ×2 (09:56→20:25)
[2018-06-06] MEDS: CYANOCOBALAMIN 500 MCG TAB PO (09:56)
[2018-06-06] MEDS: APIXABAN 5 MG TAB (ELIQUIS) PO ×2 (09:56→20:25)
[2018-06-06] MEDS: VITAMIN D 1,000 INTERNATIONAL UNITS TABLET PO (09:56)
[2018-06-06] MEDS: CitaloPRAM (CeleXA) 20 MG TAB PO (09:56)
[2018-06-06] MEDS: ASPIRIN 81 MG ENTERIC TAB PO (09:56)
[2018-06-06] MEDS: DOCUSATE SODIUM 100 MG CAP PO ×3 (09:57→20:25)
[2018-06-06] MEDS: SENNA 8.6 MG TAB (SENOKOT) PO (14:30)
[2018-06-06] MEDS: risperiDONE 1 MG TAB PO (20:25)
[2018-06-07 06:57] LABS: BASO % 0.7 % (0.0-1.0); EOS # 0.1 10^3/uL (0.0-0.50); EOS % 0.9 % (0.0-3.0); HEMATOCRIT 33.8 % (42.0-52.0); HEMOGLOBIN 11.3 g/dl (13.5-17.5); IMMATURE GRANULOCYTE % 1.3 % (0-3.0); LYMPH # 1.1 10^3/uL (1.5-4.5); LYMPH % 19.5 % (24.0-44.0); MEAN CORPUSCULAR HEMOGLOBIN 32.5 pg (27.0-33.0); MEAN CORPUSCULAR HGB CONC 33.4 g/dl (32.0-36.5); MEAN CORPUSCULAR VOLUME 97.1 fl (80.0-96.0); MONO # 0.5 10^3/uL (0.0-0.8); MONO % 8.2 % (0.0-5.0); NEUTROPHILS # 3.9 10^3/uL (1.8-7.7); NEUTROPHILS % 69.4 % (36.0-66.0); PLATELET COUNT, AUTOMATED 419 10^3/uL (150-450); RED BLOOD COUNT 3.48 10^6/uL (4.30-6.10); RED CELL DISTRIBUTION WIDTH 12.1 % (11.5-14.5); WHITE BLOOD COUNT 5.6 10^3/uL (4.0-10.0)
[2018-06-07 07:20] LABS: ANION GAP 5 MEQ/L (8-16); BLOOD UREA NITROGEN 18 MG/DL (7-18); CALCIUM LEVEL 9.1 MG/DL (8.8-10.2); CARBON DIOXIDE LEVEL 33 MEQ/L (21-32); CHLORIDE LEVEL 104 MEQ/L (98-107); CREATININE FOR GFR 0.85 MG/DL (0.70-1.30); GLOMERULAR FILTRATION RATE > 60.0 (>49); GLUCOSE, FASTING 94 MG/DL (70-100); POTASSIUM SERUM 4.1 MEQ/L (3.5-5.1); SODIUM LEVEL 142 MEQ/L (136-145)
[2018-06-07] MEDS: VITAMIN D 1,000 INTERNATIONAL UNITS TABLET PO (08:19)
[2018-06-07] MEDS: ASPIRIN 81 MG ENTERIC TAB PO (08:19)
[2018-06-07] MEDS: CYANOCOBALAMIN 500 MCG TAB PO (08:19)
[2018-06-07] MEDS: DOCUSATE SODIUM 100 MG CAP PO ×3 (08:19→21:00)
[2018-06-07] MEDS: PANTOPRAZOLE 40MG TAB (PROTONIX) PO ×2 (08:19→21:13)
[2018-06-07] MEDS: APIXABAN 5 MG TAB (ELIQUIS) PO ×2 (08:19→21:13)
[2018-06-07] MEDS: CitaloPRAM (CeleXA) 20 MG TAB PO (08:20)
[2018-06-07] MEDS: ATORVASTATIN 20 MG TAB PO (08:20)
[2018-06-07] MEDS: SENNA 8.6 MG TAB (SENOKOT) PO (12:00)
[2018-06-07] MEDS: risperiDONE 1 MG TAB PO (21:13)
[2018-06-08] MEDS: DOCUSATE SODIUM 100 MG CAP PO ×3 (09:00→20:34)
[2018-06-08] MEDS: CitaloPRAM (CeleXA) 20 MG TAB PO (09:22)
[2018-06-08] MEDS: ATORVASTATIN 20 MG TAB PO (09:22)
[2018-06-08] MEDS: PANTOPRAZOLE 40MG TAB (PROTONIX) PO ×2 (09:22→20:33)
[2018-06-08] MEDS: VITAMIN D 1,000 INTERNATIONAL UNITS TABLET PO (09:22)
[2018-06-08] MEDS: CYANOCOBALAMIN 500 MCG TAB PO (09:22)
[2018-06-08] MEDS: APIXABAN 5 MG TAB (ELIQUIS) PO ×2 (09:22→20:33)
[2018-06-08] MEDS: ASPIRIN 81 MG ENTERIC TAB PO (09:22)
[2018-06-08] MEDS: SENNA 8.6 MG TAB (SENOKOT) PO (09:23)
[2018-06-08] MEDS: risperiDONE 1 MG TAB PO (20:33)
[2018-06-09] MEDS: CYANOCOBALAMIN 500 MCG TAB PO (09:04)
[2018-06-09] MEDS: APIXABAN 5 MG TAB (ELIQUIS) PO ×2 (09:04→22:29)
[2018-06-09] MEDS: ASPIRIN 81 MG ENTERIC TAB PO (09:04)
[2018-06-09] MEDS: CitaloPRAM (CeleXA) 20 MG TAB PO (09:04)
[2018-06-09] MEDS: DOCUSATE SODIUM 100 MG CAP PO ×3 (09:05→22:29)
[2018-06-09] MEDS: PANTOPRAZOLE 40MG TAB (PROTONIX) PO ×2 (09:05→22:29)
[2018-06-09] MEDS: VITAMIN D 1,000 INTERNATIONAL UNITS TABLET PO (09:05)
[2018-06-09] MEDS: ATORVASTATIN 20 MG TAB PO (09:05)
[2018-06-09] MEDS: SENNA 8.6 MG TAB (SENOKOT) PO (12:00)
[2018-06-09] MEDS: risperiDONE 1 MG TAB PO (22:29)
[2018-06-10] MEDS: APIXABAN 5 MG TAB (ELIQUIS) PO ×2 (10:11→21:03)
[2018-06-10] MEDS: ASPIRIN 81 MG ENTERIC TAB PO (10:11)
[2018-06-10] MEDS: CYANOCOBALAMIN 500 MCG TAB PO (10:11)
[2018-06-10] MEDS: CitaloPRAM (CeleXA) 20 MG TAB PO (10:12)
[2018-06-10] MEDS: PANTOPRAZOLE 40MG TAB (PROTONIX) PO ×2 (10:12→21:03)
[2018-06-10] MEDS: ATORVASTATIN 20 MG TAB PO (10:12)
[2018-06-10] MEDS: VITAMIN D 1,000 INTERNATIONAL UNITS TABLET PO (10:12)
[2018-06-10] MEDS: DOCUSATE SODIUM 100 MG CAP PO ×3 (10:12→21:03)
[2018-06-10] MEDS: SENNA 8.6 MG TAB (SENOKOT) PO (12:00)
[2018-06-10] MEDS: risperiDONE 1 MG TAB PO (21:03)
[2018-06-11] MEDS: ASPIRIN 81 MG ENTERIC TAB PO (08:54)
[2018-06-11] MEDS: APIXABAN 5 MG TAB (ELIQUIS) PO ×2 (08:54→21:08)
[2018-06-11] MEDS: DOCUSATE SODIUM 100 MG CAP PO ×3 (08:54→21:08)
[2018-06-11] MEDS: CitaloPRAM (CeleXA) 20 MG TAB PO (08:54)
[2018-06-11] MEDS: ATORVASTATIN 20 MG TAB PO (08:54)
[2018-06-11] MEDS: CYANOCOBALAMIN 500 MCG TAB PO (08:54)
[2018-06-11] MEDS: PANTOPRAZOLE 40MG TAB (PROTONIX) PO ×2 (08:54→21:08)
[2018-06-11] MEDS: VITAMIN D 1,000 INTERNATIONAL UNITS TABLET PO (09:02)
[2018-06-11] MEDS: SENNA 8.6 MG TAB (SENOKOT) PO (12:00)
[2018-06-11] MEDS: risperiDONE 1 MG TAB PO (21:08)
[2018-06-12] MEDS: VITAMIN D 1,000 INTERNATIONAL UNITS TABLET PO (08:20)
[2018-06-12] MEDS: DOCUSATE SODIUM 100 MG CAP PO ×3 (08:20→20:31)
[2018-06-12] MEDS: APIXABAN 5 MG TAB (ELIQUIS) PO ×2 (08:20→20:31)
[2018-06-12] MEDS: PANTOPRAZOLE 40MG TAB (PROTONIX) PO ×2 (08:20→20:31)
[2018-06-12] MEDS: ASPIRIN 81 MG ENTERIC TAB PO (08:20)
[2018-06-12] MEDS: ATORVASTATIN 20 MG TAB PO (08:20)
[2018-06-12] MEDS: CYANOCOBALAMIN 500 MCG TAB PO (08:21)
[2018-06-12] MEDS: CitaloPRAM (CeleXA) 20 MG TAB PO (08:21)
[2018-06-12] MEDS: SENNA 8.6 MG TAB (SENOKOT) PO (12:08)
[2018-06-12] MEDS: risperiDONE 1 MG TAB PO (20:31)
[2018-06-13] MEDS: ASPIRIN 81 MG ENTERIC TAB PO (09:38)
[2018-06-13] MEDS: PANTOPRAZOLE 40MG TAB (PROTONIX) PO ×2 (09:38→20:24)
[2018-06-13] MEDS: CitaloPRAM (CeleXA) 20 MG TAB PO (09:38)
[2018-06-13] MEDS: CYANOCOBALAMIN 500 MCG TAB PO (09:38)
[2018-06-13] MEDS: ATORVASTATIN 20 MG TAB PO (09:38)
[2018-06-13] MEDS: DOCUSATE SODIUM 100 MG CAP PO ×3 (09:38→20:24)
[2018-06-13] MEDS: VITAMIN D 1,000 INTERNATIONAL UNITS TABLET PO (09:38)
[2018-06-13] MEDS: APIXABAN 5 MG TAB (ELIQUIS) PO ×2 (09:39→20:24)
[2018-06-13] MEDS: SENNA 8.6 MG TAB (SENOKOT) PO (12:08)
[2018-06-13] MEDS: risperiDONE 1 MG TAB PO (20:24)
[2018-06-14] MEDS: CYANOCOBALAMIN 500 MCG TAB PO (08:53)
[2018-06-14] MEDS: ATORVASTATIN 20 MG TAB PO (08:53)
[2018-06-14] MEDS: CitaloPRAM (CeleXA) 20 MG TAB PO (08:53)
[2018-06-14] MEDS: DOCUSATE SODIUM 100 MG CAP PO ×3 (08:54→20:30)
[2018-06-14] MEDS: APIXABAN 5 MG TAB (ELIQUIS) PO ×2 (08:54→20:30)
[2018-06-14] MEDS: VITAMIN D 1,000 INTERNATIONAL UNITS TABLET PO (08:54)
[2018-06-14] MEDS: ASPIRIN 81 MG ENTERIC TAB PO (08:54)
[2018-06-14] MEDS: PANTOPRAZOLE 40MG TAB (PROTONIX) PO ×2 (08:54→20:30)
[2018-06-14] MEDS: SENNA 8.6 MG TAB (SENOKOT) PO (12:02)
[2018-06-14] MEDS: risperiDONE 1 MG TAB PO (20:30)
[2018-06-15 08:24] LABS: BASO % 0.4 % (0.0-1.0); EOS % 0.4 % (0.0-3.0); HEMATOCRIT 35.6 % (42.0-52.0); HEMOGLOBIN 12.1 g/dl (13.5-17.5); IMMATURE GRANULOCYTE % 0.2 % (0-3.0); LYMPH # 0.9 10^3/uL (1.5-4.5); LYMPH % 17.1 % (24.0-44.0); MEAN CORPUSCULAR HEMOGLOBIN 32.7 pg (27.0-33.0); MEAN CORPUSCULAR VOLUME 96.2 fl (80.0-96.0); MONO # 0.4 10^3/uL (0.0-0.8); NEUTROPHILS # 3.7 10^3/uL (1.8-7.7); NEUTROPHILS % 73.9 % (36.0-66.0); PLATELET COUNT, AUTOMATED 261 10^3/uL (150-450); RED CELL DISTRIBUTION WIDTH 12.2 % (11.5-14.5)
[2018-06-15] MEDS: APIXABAN 5 MG TAB (ELIQUIS) PO ×2 (08:28→20:46)
[2018-06-15] MEDS: CitaloPRAM (CeleXA) 20 MG TAB PO (08:28)
[2018-06-15] MEDS: PANTOPRAZOLE 40MG TAB (PROTONIX) PO ×2 (08:28→20:46)
[2018-06-15] MEDS: ASPIRIN 81 MG ENTERIC TAB PO (08:28)
[2018-06-15] MEDS: CYANOCOBALAMIN 500 MCG TAB PO (08:29)
[2018-06-15] MEDS: VITAMIN D 1,000 INTERNATIONAL UNITS TABLET PO (08:29)
[2018-06-15] MEDS: ATORVASTATIN 20 MG TAB PO (08:29)
[2018-06-15] MEDS: DOCUSATE SODIUM 100 MG CAP PO ×3 (08:29→20:46)
[2018-06-15 08:54] LABS: ANION GAP 4 MEQ/L (8-16); BLOOD UREA NITROGEN 15 MG/DL (7-18); CALCIUM LEVEL 9.1 MG/DL (8.8-10.2); CARBON DIOXIDE LEVEL 33 MEQ/L (21-32); CHLORIDE LEVEL 105 MEQ/L (98-107); CREATININE FOR GFR 0.84 MG/DL (0.70-1.30); GLOMERULAR FILTRATION RATE > 60.0 (>49); GLUCOSE, FASTING 110 MG/DL (70-100); POTASSIUM SERUM 3.8 MEQ/L (3.5-5.1); SODIUM LEVEL 142 MEQ/L (136-145)
[2018-06-15] MEDS: BISACODYL 10 MG SUPP PR (11:49)
[2018-06-15] MEDS: SENNA 8.6 MG TAB (SENOKOT) PO (11:49)
[2018-06-15] MEDS: risperiDONE 1 MG TAB PO (20:46)
[2018-06-16] MEDS: ASPIRIN 81 MG ENTERIC TAB PO (08:27)
[2018-06-16] MEDS: DOCUSATE SODIUM 100 MG CAP PO ×3 (08:27→20:24)
[2018-06-16] MEDS: CitaloPRAM (CeleXA) 20 MG TAB PO (08:27)
[2018-06-16] MEDS: APIXABAN 5 MG TAB (ELIQUIS) PO ×2 (08:27→20:24)
[2018-06-16] MEDS: VITAMIN D 1,000 INTERNATIONAL UNITS TABLET PO (08:27)
[2018-06-16] MEDS: ATORVASTATIN 20 MG TAB PO (08:27)
[2018-06-16] MEDS: CYANOCOBALAMIN 500 MCG TAB PO (08:27)
[2018-06-16] MEDS: PANTOPRAZOLE 40MG TAB (PROTONIX) PO ×2 (08:27→20:24)
[2018-06-16] MEDS: SENNA 8.6 MG TAB (SENOKOT) PO (12:17)
[2018-06-16] MEDS: risperiDONE 1 MG TAB PO (20:23)
[2018-06-17] MEDS: DOCUSATE SODIUM 100 MG CAP PO ×3 (08:24→20:25)
[2018-06-17] MEDS: VITAMIN D 1,000 INTERNATIONAL UNITS TABLET PO (08:24)
[2018-06-17] MEDS: ASPIRIN 81 MG ENTERIC TAB PO (08:24)
[2018-06-17] MEDS: ATORVASTATIN 20 MG TAB PO (08:25)
[2018-06-17] MEDS: CYANOCOBALAMIN 500 MCG TAB PO (08:25)
[2018-06-17] MEDS: APIXABAN 5 MG TAB (ELIQUIS) PO ×2 (08:25→20:25)
[2018-06-17] MEDS: PANTOPRAZOLE 40MG TAB (PROTONIX) PO ×2 (08:25→20:25)
[2018-06-17] MEDS: CitaloPRAM (CeleXA) 20 MG TAB PO (08:25)
[2018-06-17] MEDS: SENNA 8.6 MG TAB (SENOKOT) PO (12:00)
[2018-06-17] MEDS: risperiDONE 1 MG TAB PO (20:25)
[2018-06-18] MEDS: APIXABAN 5 MG TAB (ELIQUIS) PO ×2 (09:05→20:16)
[2018-06-18] MEDS: PANTOPRAZOLE 40MG TAB (PROTONIX) PO ×2 (09:05→20:16)
[2018-06-18] MEDS: ASPIRIN 81 MG ENTERIC TAB PO (09:05)
[2018-06-18] MEDS: VITAMIN D 1,000 INTERNATIONAL UNITS TABLET PO (09:05)
[2018-06-18] MEDS: DOCUSATE SODIUM 100 MG CAP PO ×3 (09:05→20:16)
[2018-06-18] MEDS: CYANOCOBALAMIN 500 MCG TAB PO (09:05)
[2018-06-18] MEDS: CitaloPRAM (CeleXA) 20 MG TAB PO (09:05)
[2018-06-18] MEDS: ATORVASTATIN 20 MG TAB PO (09:06)
[2018-06-18] MEDS: SENNA 8.6 MG TAB (SENOKOT) PO (12:00)
[2018-06-18] MEDS: risperiDONE 1 MG TAB PO (20:16)
[2018-06-19] MEDS: CitaloPRAM (CeleXA) 20 MG TAB PO (09:08)
[2018-06-19] MEDS: VITAMIN D 1,000 INTERNATIONAL UNITS TABLET PO (09:08)
[2018-06-19] MEDS: APIXABAN 5 MG TAB (ELIQUIS) PO ×2 (09:08→20:06)
[2018-06-19] MEDS: PANTOPRAZOLE 40MG TAB (PROTONIX) PO ×2 (09:08→20:06)
[2018-06-19] MEDS: DOCUSATE SODIUM 100 MG CAP PO ×3 (09:08→20:06)
[2018-06-19] MEDS: CYANOCOBALAMIN 500 MCG TAB PO (09:08)
[2018-06-19] MEDS: ASPIRIN 81 MG ENTERIC TAB PO (09:08)
[2018-06-19] MEDS: ATORVASTATIN 20 MG TAB PO (09:09)
[2018-06-19] MEDS: SENNA 8.6 MG TAB (SENOKOT) PO (12:08)
[2018-06-19] MEDS: risperiDONE 1 MG TAB PO (20:06)
[2018-06-20 07:59] LABS: ANION GAP 6 MEQ/L (8-16); BLOOD UREA NITROGEN 18 MG/DL (7-18); CALCIUM LEVEL 9.1 MG/DL (8.8-10.2); CARBON DIOXIDE LEVEL 28 MEQ/L (21-32); CHLORIDE LEVEL 106 MEQ/L (98-107); CREATININE FOR GFR 0.73 MG/DL (0.70-1.30); GLOMERULAR FILTRATION RATE > 60.0 (>49); GLUCOSE, FASTING 93 MG/DL (70-100); SODIUM LEVEL 140 MEQ/L (136-145)
[2018-06-20] MEDS: CYANOCOBALAMIN 500 MCG TAB PO (09:10)
[2018-06-20] MEDS: VITAMIN D 1,000 INTERNATIONAL UNITS TABLET PO (09:10)
[2018-06-20] MEDS: CitaloPRAM (CeleXA) 20 MG TAB PO (09:10)
[2018-06-20] MEDS: DOCUSATE SODIUM 100 MG CAP PO ×3 (09:10→20:30)
[2018-06-20] MEDS: ATORVASTATIN 20 MG TAB PO (09:10)
[2018-06-20] MEDS: APIXABAN 5 MG TAB (ELIQUIS) PO ×2 (09:10→20:30)
[2018-06-20] MEDS: PANTOPRAZOLE 40MG TAB (PROTONIX) PO ×2 (09:10→20:30)
[2018-06-20 10:27] LABS: BASO % 0.5 % (0.0-1.0); EOS % 0.9 % (0.0-3.0); HEMATOCRIT 37.9 % (42.0-52.0); HEMOGLOBIN 12.6 g/dl (13.5-17.5); IMMATURE GRANULOCYTE % 0.2 % (0-3.0); LYMPH # 0.9 10^3/uL (1.5-4.5); LYMPH % 20.4 % (24.0-44.0); MEAN CORPUSCULAR HEMOGLOBIN 32.4 pg (27.0-33.0); MEAN CORPUSCULAR HGB CONC 33.2 g/dl (32.0-36.5); MEAN CORPUSCULAR VOLUME 97.4 fl (80.0-96.0); MONO # 0.3 10^3/uL (0.0-0.8); MONO % 6.8 % (0.0-5.0); NEUTROPHILS % 71.2 % (36.0-66.0); PLATELET COUNT, AUTOMATED 190 10^3/uL (150-450); RED BLOOD COUNT 3.89 10^6/uL (4.30-6.10); RED CELL DISTRIBUTION WIDTH 12.2 % (11.5-14.5); WHITE BLOOD COUNT 4.3 10^3/uL (4.0-10.0)
[2018-06-20] MEDS: SENNA 8.6 MG TAB (SENOKOT) PO (12:32)
[2018-06-20] MEDS: risperiDONE 1 MG TAB PO (20:30)
[2018-06-21] MEDS: ATORVASTATIN 20 MG TAB PO (08:58)
[2018-06-21] MEDS: APIXABAN 5 MG TAB (ELIQUIS) PO ×2 (08:58→20:09)
[2018-06-21] MEDS: DOCUSATE SODIUM 100 MG CAP PO ×3 (08:58→20:09)
[2018-06-21] MEDS: PANTOPRAZOLE 40MG TAB (PROTONIX) PO ×2 (08:58→20:09)
[2018-06-21] MEDS: CitaloPRAM (CeleXA) 20 MG TAB PO (08:58)
[2018-06-21] MEDS: VITAMIN D 1,000 INTERNATIONAL UNITS TABLET PO (08:59)
[2018-06-21] MEDS: CYANOCOBALAMIN 500 MCG TAB PO (08:59)
[2018-06-21] MEDS: SENNA 8.6 MG TAB (SENOKOT) PO (12:22)
[2018-06-21] MEDS: risperiDONE 1 MG TAB PO (20:09)
[2018-06-22] MEDS: ATORVASTATIN 20 MG TAB PO (09:45)
[2018-06-22] MEDS: PANTOPRAZOLE 40MG TAB (PROTONIX) PO (09:45)
[2018-06-22] MEDS: DOCUSATE SODIUM 100 MG CAP PO (09:45)
[2018-06-22] MEDS: CitaloPRAM (CeleXA) 20 MG TAB PO (09:46)
[2018-06-22] MEDS: CYANOCOBALAMIN 500 MCG TAB PO (09:46)
[2018-06-22] MEDS: VITAMIN D 1,000 INTERNATIONAL UNITS TABLET PO (09:46)
[2018-06-22] MEDS: APIXABAN 5 MG TAB (ELIQUIS) PO (09:46)
== END 2018-06-22 13:00 | disposition home health service (06) | DRG 58 ==
LOC: M PM&R 06-20 16:43
DX: I69.320 Aphasia following cerebral infarction (principal); E55.9 Vitamin D deficiency, unspecified; I69.351 Hemiplegia and hemiparesis following cerebral infarction affecting right dominant side; I69.322 Dysarthria following cerebral infarction; F32.9 Major depressive disorder, single episode, unspecified; Z86.718 Personal history of other venous thrombosis and embolism; F41.9 Anxiety disorder, unspecified; Z79.01 Long term (current) use of anticoagulants; Z86.711 Personal history of pulmonary embolism; K59.00 Constipation, unspecified; Z79.899 Other long term (current) drug therapy; Z66 Do not resuscitate; R32 Unspecified urinary incontinence

== ENCOUNTER → 2018-12-20 | Outpatient (REF) | payer BC ==
[~2018-12-20] MED LIST changes: +ACET1TAB55 PO; +ASPI81TAEC PO; -ASPIRIN 81 MG CHEW TABLET PO; +ATOR1TAB21 PO; +Acetaminophen Tab PO; +BISA10SU PR; +CELE20TA PO; +CITA40TA4 PO; +COLA100C5 PO; +ELIQ5TAB PO; +PANT40TA3 PO; +RISP0.5T21 PO; +RISP1TAB3 PO; +RISP1TAB42 PO; +SENN18TA PO; +VITA500T17 PO; +VITAD1000T PO
[2018-12-20 16:48] LABS: ALBUMIN 4.1 GM/DL (3.2-5.2); ALT/SGPT 38 U/L (12-78); BILIRUBIN,TOTAL 0.9 MG/DL (0.2-1.0); BLOOD UREA NITROGEN 19 MG/DL (7-18); CALCIUM LEVEL 8.9 MG/DL (8.8-10.2); CARBON DIOXIDE LEVEL 36 MEQ/L (21-32); CHLORIDE LEVEL 105 MEQ/L (98-107); CHOLESTEROL LEVEL 134 MG/DL (<200); CREATININE FOR GFR 0.96 MG/DL (0.70-1.30); GLOMERULAR FILTRATION RATE > 60.0 (>49); GLUCOSE, FASTING 93 MG/DL (70-100); HDL CHOLESTEROL 57 MG/DL (>40); IRON (FE) 125 UG/DL (65-175); LDL CHOLESTEROL 57 MG/DL (<100); NON-HDL-C 77 MG/DL; POTASSIUM SERUM 4.1 MEQ/L (3.5-5.1); SODIUM LEVEL 141 MEQ/L (136-145); TOTAL PROTEIN 7.2 GM/DL (6.4-8.2); TRIGLYCERIDES LEVEL 100 MG/DL (<150)
[2018-12-20 16:57] LABS: INR 1.17; PROTHROMBIN TIME 15.1 SECONDS (12.1-14.4)
[2018-12-20 17:05] LABS: HEMATOCRIT 39.7 % (42.0-52.0); HEMOGLOBIN 13.6 g/dl (13.5-17.5); MEAN CORPUSCULAR HEMOGLOBIN 32.6 pg (27.0-33.0); MEAN CORPUSCULAR HGB CONC 34.3 g/dl (32.0-36.5); MEAN CORPUSCULAR VOLUME 95.2 fl (80.0-96.0); PLATELET COUNT, AUTOMATED 237 10^3/uL (150-450); RED BLOOD COUNT 4.17 10^6/uL (4.30-6.10); WHITE BLOOD COUNT 4.6 10^3/uL (4.0-10.0)
== END ==
LOC: M LABDRWCV 16:24
PROVIDERS: ATTEND Nurse Practitioner Family
DX: E55.9 Vitamin D deficiency, unspecified (principal); Z88.2 Allergy status to sulfonamides; Z86.711 Personal history of pulmonary embolism; E78.00 Pure hypercholesterolemia, unspecified

== ENCOUNTER → 2019-05-21 | Outpatient (REF) ==
[~2019-05-21] MED LIST changes: +CHOL100029 PO; -VITAD1000T PO
== END ==
LOC: M LAB 13:08